=== PATIENT | male | born 1965 | race Caucasian/White ===

== ENCOUNTER 2023-03-26 18:24 | Emergency (ER) | payer OTHER, SELFPAY ==
[2023-03-26 18:27] VITALS: BP 130/86; PULSE 115; RESP 20; TEMP 36.6; O2SAT 94; BMI 21.9
[2023-03-26 18:51] VITALS: PULSE 102; RESP 16; O2SAT 95
[2023-03-26 19:34] VITALS: PULSE 107; RESP 16
[2023-03-26] MEDS: Ipratropium/Albuterol Sulfate 3 ML AMPUL.NEB INHALATION (19:34)
[2023-03-26] MEDS: Albuterol Sulfate 8 gm Inhaler (60 puffs) 2 PUFF INHALATION (19:50)
[2023-03-26] MEDS: INHALER, ASSIST DEVICES 1 EACH SPACER INHALATION (19:50)
[2023-03-26 20:11] VITALS: PULSE 96; RESP 15; O2SAT 94
--- NOTE | 2023-03-26 21:26 | ED.VIS.DYS ---
HPI History of Present Illness Chief Complaint: Shortness of Breath Informant: patient and family Narrative Narrative: 57-year-old female presenting to the emergency room for the evaluation of dyspnea. Patient states that he has intermittently had dyspnea in the past but has always worked through it. He states that he sees a doctor in [facility] for chelation therapy for lead toxicity. He states that this is at a the [facility]. What brought him to the emergency room is that yesterday he mowed his lawn and was picking up sticks at his neighbor's yard. Began to feel short of breath. This kept him up most of the night. He notes difficulty laying down feels better leaning forward and being upright. He does feel some wheeze at times. No productive cough. He is a non-smoker. The patient wonders if this is anxiety. He spoke with his sister and they went to urgent care who is having difficulty getting out of the car was noted to have a pulse ox of 87% was tachycardic. Since arriving the emergency department he states he is feeling better but wonders if that has to do with the cool air. He denies any DVT or PE risk factors or history. He denies any chest pain. No known cardiac issues. PFSH PFSH Allergy/AdvReac Type Severity Reaction Status Date / Time No Known Allergies Allergy Verified 03/26/23 18:27 Social History Smoking Status: Never smoker ROS ROS ED Constitutional Constitutional ED: Denies chills or weight loss Eyes Eyes: Denies change in vision or diplopia ENT ENT ED: Denies ear pain, rhinorrhea or sore throat Cardiovascular Cardiovascular: Denies chest pain, orthopnea, palpitations or racing heartbeat Respiratory/Chest Respiratory/Chest: Reports dyspnea and dyspnea on exertion; Denies cough or orthopnea Gastrointestinal Gastrointestinal: Denies abdominal pain, diarrhea, nausea or vomiting Genitourinary Genitourinary ED: Denies dysuria, hematuria or urinary frequency Musculoskeletal Musculoskeletal: Denies arthralgias or myalgias Integumentary Denies abscess or rash Neurologic Neurologic: Denies headache(s) or weakness Psychiatric Psychiatric: Denies anxiety, depression, suicidal ideation or suicidal thoughts Endocrine Endocrinology: Denies polydipsia, polyphagia or polyuria Allergic/Immunologic Allergic/Immunologic ED: Denies mouth swelling, tongue swelling or urticaria EXAM Physical Exam Const Vital Signs: 03/26/23 18:27 03/26/23 18:51 03/26/23 18:51 Temperature 98 F Temperature Source Temporal Pulse Rate 115 H 102 H Respiratory Rate 20 H 16 Respiratory Effort Normal Respiratory Depth Shallow Respiratory Pattern Normal Blood Pressure 130/86 H Blood Pressure Mean 100 Pulse Ox 94 95 Oxygen Delivery Method Room Air Room Air Room Air 03/26/23 19:34 03/26/23 20:11 Temperature Temperature Source Pulse Rate 107 H 96 Respiratory Rate 16 15 Respiratory Effort Respiratory Depth Respiratory Pattern Normal Blood Pressure Blood Pressure Mean Pulse Ox 94 Oxygen Delivery Method Positive well nourished and well developed General Appearance ED: well developed HEENT Reports normocephalic, head/scalp atraumatic and moist mucous membranes Eyes PERRL and EOMs intact bilaterally Neck no lymphadenopathy, supple and no JVD Resp normal respiratory effort Auscultation: wheezes expiratory wheezes Cardio regular rate, regular rhythm and no murmurs GI normal to inspection, nondistended, normoactive bowel sounds and non-tender Palpation: soft Back/Spine no CVA tenderness and normal ROM Extremity normal to inspection General Extremety ED: Negative for edema General Extremity: Negative for edema Neuro oriented x3 and CN's II-XII intact bilaterally Sensorium / Orientation: alert Motor Exam: strength 5/5 throughout Psych mental status grossly normal Mood & Affect: Negative for depressed or tearful Skin no rashes or lesions noted and no wounds MDM MDM MDM Narrative Medical decision making narrative: Patient received a DuoNeb and feels significantly better. I do not think this is pulmonary embolism. He is got no risk factors for this. He has no chest pain tachycardia or hypoxia here. He is wheezing that resolved. I discussed with him about a chest x-ray but he states he had one about 3 years ago he is very hesitant on additional testing. We talked about multiple different etiologies for the wheezing. At this point I do not think he needs any emergent work-up at this time. I will write for him to have albuterol MDI with spacer. Advised him to follow-up with primary care for further evaluation. Discharge Plan Triage Chief Complaint: Shortness of Breath ED Provider: Oj Hickman Dx/Rx/DC Orders Clinical Impression: Acute bronchospasm Instructions: ED Bronchospasm (Adult) Primary Care Provider: Lobo Fuentes NP Referrals: Lobo Fuentes SCRAP MATERIALS BUYER, SCR[employer] MATERIALS BUYER-C [Primary Care Provider] - 1-2 Weeks Activity Restrictions/Additional Instructions: Please use the inhaler 2 to 3 puffs every 4 hours for continued shortness of breath. If this is not helping please return to the emergency department. Please follow-up with primary care for further evaluation Disposition Disposition: Home, Self Care Discharge Date/Time: 03/26/23 20:12
== END 2023-03-26 20:12 | disposition home or self-care (01) ==
PROVIDERS: Emergency Provider Emergency Medicine; PCP Nurse Practitioner Family; Visit Provider Emergency Medicine
DX: J98.01 Acute bronchospasm (principal)
CPT/HCPCS: 94640; 99282

== ENCOUNTER 2024-12-06 00:11 | Emergency (ER) | payer OTHER, SELFPAY ==
[2024-12-06] VITALS (10 sets, daily range): BP systolic 105–158; BP diastolic 53–86; PULSE 104–130; RESP 17–24; TEMP 36.6–36.8; O2SAT 93–94; BMI 21.5
--- NOTE | 2024-12-06 00:15 | EKG12_ITS ---
Test Reason : SOB Blood Pressure : */* mmHG Vent. Rate : 113 BPM Atrial Rate : 113 BPM P-R Int : 114 ms QRS Dur : 74 ms QT Int : 290 ms P-R-T Axes : 69 73 40 degrees QTcB Int : 397 ms Sinus tachycardia Otherwise normal ECG Confirmed by Jasen Robertson ([id number]), field map editor MICKEY STRANGE ([id number]) on 12/07/2024 9:15:45 AM Referred By: CHRISTEN Confirmed By: Jasen Robertson
--- NOTE | 2024-12-06 00:18 | EDS_ITS ---
HPI History of Present Illness Chief Complaint: Shortness of Breath Informant: patient and family Narrative Narrative: Patient 59-year-old male with history of either asthma or reactive airway (has a rescue inhaler and on maintenance steroid inhaler that he regularly uses) presenting with worsening shortness of breath. Is been for 2 to 3 days. They feel he cannot catch his breath. His inhaler does not seem to be working. He checked his oxygen at home and was around 91%. Put on his ogles O2 for couple hours with no improvement. Came in for further evaluation. Notes he has been in the ER for breathing complaints in the past but nothing recently. Denies any prior hospitalization for his breathing. Denies any fever or chills. Not having a cough. Denies any chest pain. [place] any swelling of his legs. Denies a history of DVT or PE. No other complaints or concerns at this time. PFSH [facility] Medical History unable to obtain Home Medications ?Medication ?Instructions ?Recorded ?Last Taken ?Type albuterol sulfate 90 mcg/actuation 2 puff inhalation Q 4H PRN 12/06/24 Unknown History aerosol inhaler shortness of breath or wheez ing prednisone 20 mg tablet 40 mg (2 x 20 mg) PO DAILY # 10 tabs 12/06/24 Unknown Rx Allergy/AdvReac Type Severity Reaction Status Date / Time No Known Allergies Allergy Verified 12/06/24 00:11 Social History Smoking Status: Never smoker ROS ROS ED Constitutional Constitutional ED: Denies chills or fever(s) Cardiovascular Cardiovascular: Denies chest pain or palpitations Respiratory/Chest Respiratory/Chest: Reports dyspnea; Denies cough or sputum Gastrointestinal Gastrointestinal: Denies abdominal pain, nausea or vomiting Neurologic Neurologic: Denies weakness Hematologic/Lymphatic Hematologic/Lymphatic: Denies easy bleeding or easy bruising EXAM Physical Exam Const Vital Signs: 12/06/24 00:11 12/06/24 00:13 12/06/24 00:15 Temperature 98.2 F 98.2 F Temperature Source Oral Oral Pulse Rate 130 H 126 H Respiratory Rate 24 H 24 H Respiratory Effort Respiratory Pattern Blood Pressure 158/86 H 158/86 H Blood Pressure Mean 110 110 Pulse Ox 93 93 Oxygen Delivery Method Room Air Room Air 12/06/24 00:16 12/06/24 00:23 12/06/24 01:07 Temperature Temperature Source Pulse Rate 117 H 116 H Respiratory Rate 20 H 21 H Respiratory Effort Short of Breath Accessory Muscle Use Respiratory Pattern Tachypnea Blood Pressure 105/53 L Blood Pressure Mean 70 Pulse Ox 93 Oxygen Delivery Method 12/06/24 01:13 12/06/24 01:49 12/06/24 02:00 Temperature 98 F 98.1 F Temperature Source Oral Oral Pulse Rate 118 H 108 H 110 H Respiratory Rate 17 18 18 Respiratory Effort Respiratory Pattern Normal Blood Pressure 121/70 H 110/60 Blood Pressure Mean 87 76 Pulse Ox 93 93 Oxygen Delivery Method Room Air Room Air 12/06/24 02:55 Temperature 98.1 F Temperature Source Oral Pulse Rate 111 H Respiratory Rate 18 Respiratory Effort Respiratory Pattern Blood Pressure 105/64 Blood Pressure Mean 77 Pulse Ox 93 Oxygen Delivery Method Room Air Positive well nourished and well developed Constitutional Narrative: Patient is in acute respiratory distress General Appearance ED: well developed; Negative for pallor HEENT Reports dry mucous membranes Mouth ED: Yes dry mucous membranes Mouth: dry mucous membranes Neck supple and no JVD Resp Resp Narrative: Tachypneic, conversational dyspnea currently speaking 1-2 words. Retracting. Mild expiratory wheezing but more pronounced is that he has severely diminished breath sounds throughout. Cardio regular rhythm and no murmurs Rate: tachycardic GI non-tender and non-distended Neuro oriented x3 Sensorium / Orientation: alert Motor Exam: Negative for general weakness Psych mental status grossly normal Skin General Skin Exam: Negative for jaundice or pallor Rashes: no rashes MDM MDM MDM Narrative Medical decision making narrative: Patient evaluated for worsening shortness of breath. Upon arrival patient is in acute respiratory distress and appears to be having an asthma exacerbation. Is given stacked aerosol treatments with improvement. He is not hypoxic however his O2 saturation is only 91 to 93%. Differential includes asthma/reactive airway exacerbation, pneumonia, pneumothorax or tamponade physiology. Chest x-ray reviewed by myself as well as radiology does not show any acute process. CBC shows a mild leukocytosis of 12.3 which could be reactive. No left shift. BMP normal. He is not having any chest pain and EKG does not show any acute ischemic changes I do not think he requires troponins I do not think this is ACS or other acute cardiac process. Patient has clinical improvement with aerosols. Is given additional DuoNeb as he still has some mildly diminished breath sounds at the bases but his work of breathing has significantly improved. Is given IV Solu-Medrol and IV fluids in the emergency room. On repeat evaluation after the last treatment symptoms have significantly improved. He has breath sounds throughout with no significant wheezing. He is ambulated with no hypoxia. He has no further conversational dyspnea. Patient be discharged home with a spacer to use with his inhaler as well as a prescription for prednisone. Encouraged follow-up with his primary c are doctor for further evaluation and possible referral for pulmonology. Given return precautions. Do not suspect bacterial etiology at this time I do not think antibiotics are indicated. Discharged home in stable improved condition. Lab Data Attestation: I reviewed the patient's lab results. Labs: Laboratory Results - last 24 hr 12/06/24 00:17 WBC 12.3 H RBC 5.27 Hgb 15.9 Hct 46.7 MCV 88.6 MCH 30.2 MCHC 34.0 RDW Std Deviation 41.7 RDW Coeff of Elizabeth 12.8 Plt Count 328 MPV 8.9 Immature Gran % (Auto) 0.200 Neut % (Auto) 56.0 Lymph % (Auto) 30.4 Orange % (Auto) 9.5 Eos % (Auto) 3.5 Baso % (Auto) 0.4 Absolute Neuts (auto) 6.9 Absolute Lymphs (auto) 3.74 Nucleated RBC % 0 Sodium 144 Potassium 3.9 Chloride 106 Carbon Dioxide 27.5 Anion Gap 10 BUN 23 H Creatinine 1.13 Estim Creat Clear Calc 63.66 Est GFR (MDRD) Non-Af 76 BUN/Creatinine Ratio 20.0 Glucose 97 Calcium 9.3 Radiography Diagnostic Testing: Clinical Impression(s) from Imaging Studies Chest X-Ray 12/06/24 00:55 IMPRESSION: No radiographic evidence of an acute abnormality. Reading Location: [place] [id number] Rhythm Strip Rhythm Strip: Sinus Tach Rate: 113 Ectopy: None EKG Initial EKG: Attestation: I personally reviewed and interpreted this EKG as follows: Interpretation: Sinus Tachycardia Comments: Sinus tachycardia rate of 113 bpm Normal axis Normal intervals Normal ST segments Differential Diagnosis Chest pain/SOB: pulmonary embolism Reason(s) PE less likely: Positive for Well's <3, not hypoxic and Other (Presentation highly consistent with asthma exacerbation with resolution after aerosols) Treatment and Re-Evaluation :: Considered admission however patient had significant improvement with aerosols and does not require supplemental oxygen. Will be treated outpatient with close return precautions Discharge Plan Triage Chief Complaint: Shortness of Breath ED Provider: Chloe Olivo Dx/Rx/DC Orders Clinical Impression: Asthma exacerbation Instructions: ED Asthma, Acute (Adult) Prescriptions: New prednisone 20 mg tablet 40 mg PO DAILY Qty: 10 0RF No Action albuterol sulfate 90 mcg/actuation HFA aerosol inhaler 2 puff inhalation Q4H PRN (Reason: shortness of breath or wheezing) Primary Care Provider: Lobo Fuentes NP Referrals: Lobo Fuentes BRICKLAYER'S ASSISTANT, BRICKLAYER'S ASSISTANT-C [Primary Care Provider] - Activity Restrictions/Additional Instructions: If her breathing worsens or gets little help was tonight when you first came in please immediately return to the emergency room. Use a spacer with your inhaler and use your inhaler 1 to 2 puffs every 4 hours for your shortness of breath as needed. Take the steroids as prescribed. Please make sure you follow-up with your primary care for further evaluation of your breathing. Print Language: Hebrew Disposition Disposition: Home, Self Care
[2024-12-06] MEDS: Albuterol 2.5 MG/3 ML VIAL.NEB. INHALATION ×3 (00:23→00:41)
[2024-12-06] MEDS: Ipratropium/Albuterol Sulfate 3 ML AMPUL.NEB INHALATION ×2 (00:23→01:47)
[2024-12-06] MEDS: 0.9% Normal Saline (1000mL) 1,000 ML 999 ML IV (00:26)
[2024-12-06] MEDS: MethylPREDNISolone 125 MG/2 ML Vial IV (00:26)
[2024-12-06 00:27] LABS: Absolute Lymphocyte Count 3.74 X10^3/uL (0.83-4.51); Absolute Neutrophil Count 6.9 X10^3/uL (2.0-7.7); Basophil# 0.05 X10^3/uL; Basophil% 0.4 % (0-1); Eosinophil# 0.43 X10^3/uL; Eosinophils% 3.5 % (0-5); Hematocrit 46.7 % (40-54); Hemoglobin 15.9 g/dL (13.0-16.5); Lymphocyte # 3.74 X10^3/ul (0.83-4.51); Lymphocyte % 30.4 % (19-41); Mean Corpuscular Hgb 30.2 pg (27.0-32.0); Mean Corpuscular Volume 88.6 fL (80-94); Mean Platelet Vol. 8.9 fl (6.2-12.0); Monocyte# 1.17 X10^3/uL; Monocyte% 9.5 % (0-10); NRBC Flagged by Analyzer 0 % (0-5); Platelet Count 328 K/mm3 (150-450); RBC Distribution Width CV 12.8 % (11.6-14.6); RBC Distribution Width SD 41.7 fl (35.1-43.9); Red Blood Count 5.27 M/mm3 (4.6-6.2); White Blood Count 12.3 K/mm3 (4.4-11.0)
[2024-12-06 00:45] LABS: Anion Gap 10 (5-15); BUN 23 mg/dL (4-19); Calcium,Total 9.3 mg/dL (7.6-11.0); Carbon Dioxide 27.5 mmol/L (21.0-32.0); Chloride 106 mmol/L (98-108); Creatinine, Serum 1.13 mg/dL (0.70-1.20); EST Glomerular Filtration Rate 76 (>60); Estimated Creatinine Clearance 63.66 ml/min (50-250); Glucose 97 mg/dL (70-99); Potassium 3.9 mmol/L (3.3-5.1); Sodium Level 144 mmol/L (133-145)
--- NOTE | 2024-12-06 00:55 | RAD_ITS ---
PROCEDURE: CHEST 1 VIEW (PORTABLE) 12/06/2024 REASON FOR EXAM: SOB TECHNIQUE: Frontal view of the chest. COMPARISON: None. FINDINGS: The lungs are expanded. There is no demonstrated parenchymal abnormality. There is no demonstrated pleural abnormality. Normal heart and pericardium. Normal mediastinum and balta. Normal visualized pulmonary arteries. Normal visualized aortic arch and descending thoracic aorta. Normal visualized thoracic spine. Normal visualized ribs, clavicles, and shoulders. There is no demonstrated abnormality of the visualized soft tissue structures of the upper abdomen. RAD/Chest 1 View (Portable) IMPRESSION: No radiographic evidence of an acute abnormality. Reading [facility] [id number]
== END 2024-12-06 03:39 | disposition home or self-care (01) ==
PROVIDERS: Emergency Provider Emergency Medicine; PCP Nurse Practitioner Family; Visit Provider Emergency Medicine
DX: J45.901 Unspecified asthma with (acute) exacerbation (principal); R06.02 Shortness of breath
CPT/HCPCS: 71045; 80048; 85025; 93005; 94640; 96361; 96374; 99284; A4216